=== PATIENT | female | born 1950 | race Caucasian/White ===

== ENCOUNTER 2016-11-16 00:39 | Emergency (ER) | payer MEDICARE, MEDICAID ==
[~2016-11-16] VITALS: Ht 157.5 cm; Wt 64.0 kg
[~2016-11-16 00:39] MED LIST: AMLO10TA80 PO; ASPI-1035 PO; CINA30 PO; DOCU-150 PO; DONE5TAB3 PO; FOLI1TAB87; GABA-529 PO; HYDR-4134 PO; SEVE800T8 PO; TEMAZEPAM PO; TRAM50TA3 PO
[2016-11-16 01:57] LABS: HEMATOCRIT. 34.6 % (36.0-48.0); HEMOGLOBIN. 11.1 g/dL (12.0-16.0); MEAN CORPUSCULAR HEMOGLOBIN 29.4 pg (28.0-32.0); MEAN CORPUSCULAR VOLUME 91.8 fL (81.0-99.0); MEAN PLATELET VOLUME 8.5 fl (7.4-10.4); PLATELET 277 x1000/uL (130-400); RED BLOOD CELL COUNT 3.78 mill/uL (4.2-5.4); RED CELL DISTRIBUTION WIDTH 20.1 % (11.6-14.6); WHITE BLOOD COUNT 8.8 x1000/uL (4.5-11.0)
[2016-11-16 02:01] LABS: DIFFERENTIAL COMMENT 1
[2016-11-16 02:04] LABS: CALCIUM 8.1 mg/dL (8.5-10.1)
[2016-11-16 02:26] LABS: ATYPICAL LYMPHOCYTES 1
[2016-11-16 02:27] LABS: ANISOCYTOSIS 2+; GIANT PLATELETS FEW; PLATELET ESTIMATE NORMAL
[2016-11-16 02:28] LABS: HYPOCHROMASIA 1+
[2016-11-16 03:34] VITALS: BP 162/65
== END 2016-11-16 05:02 | disposition home or self-care (01) ==
LOC: ER 00:56
DX: E11.649 Type 2 diabetes mellitus with hypoglycemia without coma (principal); E11.9 Type 2 diabetes mellitus without complications; I25.2 Old myocardial infarction; I12.0 Hypertensive chronic kidney disease with stage 5 chronic kidney disease or end stage renal disease; N18.6 End stage renal disease; Z99.2 Dependence on renal dialysis; Z79.82 Long term (current) use of aspirin; Z86.73 Personal history of transient ischemic attack (TIA), and cerebral infarction without residual deficits; Z98.890 Other specified postprocedural states; Z88.2 Allergy status to sulfonamides; Z88.6 Allergy status to analgesic agent
CPT/HCPCS: 36415; 80048; 82962; 85025; 99284

== ENCOUNTER 2017-05-23 04:44 | Emergency (ER) | payer MEDICARE, MEDICAID ==
[~2017-05-23] VITALS: Ht 152.4 cm; Wt 72.0 kg
[~2017-05-23 04:44] MED LIST changes: -ASPI-1035 PO; +ASPI-1159 PO; -DONE5TAB3 PO; +DONE5TAB7 PO
[2017-05-23] MEDS: ACETAMINOPHEN 650MG/20.3ML UDC PO ONE (07:30)
[2017-05-23 07:44] VITALS: BP 166/85
== END 2017-05-23 08:05 | disposition home or self-care (01) ==
LOC: ER 04:44
DX: S81.011A Laceration without foreign body, right knee, initial encounter (principal); I12.0 Hypertensive chronic kidney disease with stage 5 chronic kidney disease or end stage renal disease; E11.22 Type 2 diabetes mellitus with diabetic chronic kidney disease; N18.6 End stage renal disease; Z86.73 Personal history of transient ischemic attack (TIA), and cerebral infarction without residual deficits; Z99.2 Dependence on renal dialysis; Z88.2 Allergy status to sulfonamides; W19.XXXA Unspecified fall, initial encounter; Y93.89 Activity, other specified; Y92.89 Other specified places as the place of occurrence of the external cause; Y99.8 Other external cause status; Z79.82 Long term (current) use of aspirin
CPT/HCPCS: 71010; 73562; 73590; 82962; 99284

== ENCOUNTER 2017-06-18 13:33 | Emergency (ER) | payer MEDICARE, MEDICAID ==
[~2017-06-18] VITALS: Ht 152.4 cm; Wt 65.0 kg
[2017-06-18 16:47] VITALS: BP 152/88
== END 2017-06-18 16:50 | disposition home or self-care (01) ==
LOC: ER 13:44
DX: E11.649 Type 2 diabetes mellitus with hypoglycemia without coma (principal); E11.22 Type 2 diabetes mellitus with diabetic chronic kidney disease; T50.905A Adverse effect of unspecified drugs, medicaments and biological substances, initial encounter; I12.0 Hypertensive chronic kidney disease with stage 5 chronic kidney disease or end stage renal disease; N18.6 End stage renal disease; Z79.4 Long term (current) use of insulin; Z88.2 Allergy status to sulfonamides; Z88.5 Allergy status to narcotic agent; Z88.6 Allergy status to analgesic agent; Z99.2 Dependence on renal dialysis; Z79.82 Long term (current) use of aspirin; Z86.73 Personal history of transient ischemic attack (TIA), and cerebral infarction without residual deficits
CPT/HCPCS: 82962; 99283